=== PATIENT | female | born 1975 | race Hispanic/Latino ===

== ENCOUNTER → 2017-12-09 | Outpatient (CLI) | payer BC | END | disposition home or self-care (01) | LOC: RAH 07:03 | PROVIDERS: ATTEND Orthopaedic Surgery | DX: S83.272A Complex tear of lateral meniscus, current injury, left knee, initial encounter (principal); M25.462 Effusion, left knee; X58.XXXA Exposure to other specified factors, initial encounter; Y93.89 Activity, other specified; Y92.89 Other specified places as the place of occurrence of the external cause; Y99.8 Other external cause status | CPT/HCPCS: 73721 ==

== ENCOUNTER 2018-02-19 06:31 | Day surgery (SDC) | payer BC ==
[2018-02-18 14:56] VITALS: BP 118/85
[2018-02-18 14:58] LABS: BASOPHILS % (AUTO) 0.7 % (0.0-5.0); EOSINOPHILS % (AUTO) 1.6 % (0.0-8.0); HEMATOCRIT 40.8 % (36-48); MEAN CORPUSCULAR HEMOGLOBIN 28.8 pg (27.0-33.0); MEAN CORPUSCULAR HGB CONC 33.1 g/dL (32.0-36.0); MEAN CORPUSCULAR VOLUME 86.9 fL (79-99); MONOCYTES % (AUTO) 7.4 % (3.0-13.0); NEUTROPHILS % (AUTO) 60.3 % (40.0-77.0); PLATELET COUNT (AUTO) 245 K/uL (130-400); RED CELL DISTRIBUTION WIDTH 14.3 % (11.0-15.5); WHITE BLOOD COUNT (AUTO) 9.1 K/uL (4.8-10.8)
[2018-02-18 15:04] LABS: CREATININE 0.9 mg/dL (0.5-1.5); POTASSIUM 4.4 mmol/L (3.5-5.1)
[2018-02-19] VITALS (19 sets, daily range): BP systolic 113–152; BP diastolic 60–96
[~2018-02-19] VITALS: Ht 158.8 cm; Wt 106.8 kg
[~2018-02-19 06:31] MED LIST: CEFAZOLIN 3GM /D5W 100ML 100 ML IV SCH; FLUO10TA3 PO; HYDR-3421 PO; TYL3 PO
[2018-02-19] MEDS ORDERED: LACTATED RINGERS 1000ML 1,000 ML IV ONE (07:40)
[2018-02-19] MEDS ORDERED: SUCCINYLCHOLINE CHLORIDE 20 MG/ML 10 ML VIAL ONE (07:52)
[2018-02-19] MEDS ORDERED: ROCURONIUM 10MG/1ML SYR 10 MG/ML ML ONE (07:52)
[2018-02-19] MEDS ORDERED: PROPOFOL 10 MG/ML 20ML VIAL IV ONE (07:52)
[2018-02-19] MEDS ORDERED: MIDAZOLAM HCL 1 MG/ML 2ML VIAL ONE (07:53)
[2018-02-19] MEDS ORDERED: FENTANYL CITRATE PF 50 MCG/1 ML 5ML AMP IV ONE (07:53)
[2018-02-19] MEDS ORDERED: CEFAZOLIN SODIUM 1 GM VIAL ONE (08:25)
[2018-02-19] MEDS ORDERED: ONDANSETRON HCL 4 MG/2 ML VIAL ONE (09:34)
[2018-02-19] MEDS ORDERED: NEOSTIGMINE 5MG/5ML SYR IV ONE (10:10)
[2018-02-19] MEDS ORDERED: GLYCOPYRROLATE 1 MG/5 ML SYRINGE ONE (10:10)
[2018-02-19] MEDS ORDERED: TYL3 PO (10:17)
[2018-02-19] MEDS ORDERED: CEPH500B PO (10:17)
[2018-02-19] MEDS ORDERED: MELO-108 PO (10:17)
[2018-02-19] MEDS ORDERED: MEPERIDINE-PF 25 MG/ML SYG ONE (10:31)
[2018-02-19] MEDS ORDERED: MORPHINE SULFATE 2 MG/ML 1ML SYG ONE (10:40)
[2018-02-19] MEDS ORDERED: KETOROLAC TROMETHAMINE 30MG/ML ONE (10:51)
[2018-02-19] MEDS ORDERED: FENTANYL CITRATE PF 50 MCG/1 ML 2ML VIAL ONE (10:59)
[2018-02-19] MEDS ORDERED: HYDROCODONE/ACETAMINOPHEN 5/325 MG TAB PO SCH (13:15)
== END 2018-02-19 14:48 | disposition home or self-care (01) ==
LOC: DAH 06:31 → SUH 06:31
PROVIDERS: ATTEND Orthopaedic Surgery
DX: S83.282A Other tear of lateral meniscus, current injury, left knee, initial encounter (principal); X58.XXXA Exposure to other specified factors, initial encounter; Y93.89 Activity, other specified; Y92.89 Other specified places as the place of occurrence of the external cause; Y99.8 Other external cause status; M21.862 Other specified acquired deformities of left lower leg; M22.42 Chondromalacia patellae, left knee; Z79.2 Long term (current) use of antibiotics; Z79.899 Other long term (current) drug therapy; Z72.89 Other problems related to lifestyle; Z83.3 Family history of diabetes mellitus; Z82.49 Family history of ischemic heart disease and other diseases of the circulatory system; Z98.890 Other specified postprocedural states; Z79.1 Long term (current) use of non-steroidal anti-inflammatories (NSAID); Z98.84 Bariatric surgery status
CPT/HCPCS: 29879; 29881; 36415; 80048; 85025; A4218; A4606; A4649 ×2; A4930; A6223; J0330; J0690 ×2; J1885; J2175; J2250; J2405; J2704; J2710; J3010 ×2; J3490; J7120

== ENCOUNTER 2023-08-17 03:52 | Emergency (ER) | payer BC ==
[~2023-08-17] VITALS: Ht 160 cm; Wt 98.0 kg
[~2023-08-17 03:52] MED LIST changes: -CEFAZOLIN 3GM /D5W 100ML 100 ML IV SCH; +CEPH500B PO; -FLUO10TA3 PO; +FLUO10TA35 PO; +MELO-108 PO; +PANT40TA55 PO
[2023-08-17 05:00] LABS: APPEARANCE,URINE CLEAR (CLEAR); BILIRUBIN,URINE NEGATIVE (NEGATIVE); COLOR,URINE LIGHT-YELLOW (YELLOW); GLUCOSE, URINE (UA) NEGATIVE (NEGATIVE); KETONES,URINE NEGATIVE (NEGATIVE); LEUKOCYTE ESTERASE ,URINE 25 Leu/uL (NEGATIVE); NITRATE,URINE NEGATIVE (NEGATIVE); OCCULT BLOOD,URINE NEGATIVE (NEGATIVE); PROTEIN,URINE NEGATIVE (NEGATIVE); UROBILINOGEN,URINE 0.2 mg/dL (0.2-1.0)
[2023-08-17 05:05] LABS: ADD UA MICROSCOPIC YES
[2023-08-17] MEDS: ONDANSETRON 4MG INJ IVP ONE (05:12)
[2023-08-17] MEDS: 0.9%NACL 1000ML 1,000 ML IV ONE (05:13)
[2023-08-17 05:19] LABS: BASOPHILS # (AUTO) 0.02 K/uL (0.00-0.20); BASOPHILS % (AUTO) 0.3 % (0.0-5.0); EOSINOPHILS # (AUTO) 0.15 K/uL (0.00-0.70); EOSINOPHILS % (AUTO) 2.2 % (0.0-8.0); HEMATOCRIT 39.8 % (36-48); IMMATURE GRANULOCYTE ABSOLUTE 0.01 K/uL (0-1); LYMPHOCYTES # (AUTO) 2.4 K/uL (1.0-4.8); LYMPHOCYTES % (AUTO) 36.6 % (21.0-51.0); MEAN CORPUSCULAR HEMOGLOBIN 28.2 pg (27.0-33.0); MEAN CORPUSCULAR HGB CONC 33.4 g/dL (32.0-36.0); MEAN CORPUSCULAR VOLUME 84.3 fL (79-99); MONOCYTES # (AUTO) 0.6 K/uL (0.1-1.0); MONOCYTES % (AUTO) 8.4 % (3.0-13.0); NEUTROPHILS # (AUTO) 3.5 K/uL (1.8-7.7); NEUTROPHILS % (AUTO) 52.4 % (40.0-77.0); PLATELET COUNT (AUTO) 202 K/uL (130-400); RED BLOOD CELL COUNT(AUTO) 4.72 MIL/uL (4.00-5.50); RED CELL DISTRIBUTION WIDTH 13.2 % (11.0-15.5); WHITE BLOOD COUNT (AUTO) 6.7 K/uL (4.8-10.8)
[2023-08-17 05:46] LABS: SARS-CoV-2, RNA, NAAT NEGATIVE SARS CoV-2 (NEGATIVE)
[2023-08-17 05:49] LABS: INFLUENZA TYPE A Negative For Type A (NEGATIVE); INFLUENZA TYPE B Negative For Type B (NEGATIVE)
[2023-08-17 06:54] LABS: ALBUMIN 3.4 g/dL (3.5-5.0); BILIRUBIN,TOTAL 0.5 mg/dL (0.2-1.0); CREATININE 0.8 mg/dL (0.5-1.0); POTASSIUM 3.8 mmol/L (3.5-5.1); TOTAL PROTEIN, SERUM 7.2 g/dL (6.0-8.3)
[2023-08-17 08:21] VITALS: BP 124/82; PULSE 63; RESP 16; O2SAT 99
[2023-08-17] MEDS ORDERED: CEPH500B PO (08:26)
[2023-08-17] MEDS ORDERED: LINA72CA PO (08:26)
== END 2023-08-17 08:41 | disposition home or self-care (01) ==
LOC: EDH 03:52
DX: N39.0 Urinary tract infection, site not specified (principal); K59.00 Constipation, unspecified; Z20.822 Contact with and (suspected) exposure to COVID-19
CPT/HCPCS: 99284; 74176; 96374; 87635; 80053; 84703; 83690; 85025; 87804 ×2; 81001; 36415; J7030; J2405